=== PATIENT | female | born 2000 | race Caucasian/White ===

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

== ENCOUNTER 2020-01-27 07:46 | Emergency (ER) | payer SELFPAY ==
[2020-01-27 07:47] VITALS: BP 148/80; PULSE 107; RESP 16; TEMP 36.6; O2SAT 100; BMI 18.8
--- NOTE | 2020-01-27 07:55 | ED.VISSUMM ---
- ER Visit Summary Date of Service: 01/27/20 Chief Complaint: [Dental pain] History of Present Illness: The patient is a 19 F [presents with dental pain that started about a week ago. Patient states that she has an erupting right lower molar. Patient complains of pain with chewing. She denies any fever, chills, or sweats. Patient states that she normally sees [facility] but they want $400 to have the tooth extracted and she cannot afford it. Patient denies any trauma to her teeth. Patient has no medical history.] Physical Examination: [HEENT-PERRLA, EOMI. Cranial nerves II through XII grossly intact. TMs clear. Mucous membranes moist. No adenopathy. Dentition-patient does have an erupting right lower wisdom tooth is tender to palpation. There are some mild gingival edema and faint erythema noted. Patient also some tenderness to the adjacent right lower molars. No discrete gingival abscesses noted. No facial erythema or cellulitis. No significant swelling of the face noted. Cardiovascular-regular rate and rhythm without murmur or ectopy Lungs-clear to auscultation, chest wall stable without crepitus or subcu emphysema Abdomen-normoactive bowel sounds, soft, nontender, no rebound or rigidity, no peritoneal signs. Extremities-intact ?4, normal range of motion, normal pulses, atraumatic] Test Results: [None indicated] Emergency Department Course and Treatment: [] Treatment Plan: [Patient will be started on clindamycin and given a prescription for Naprosyn as well as a list of dentists.] Disposition: [Discharged home in stable condition] Impression: [Dental pain] This note was generated with [employer] dictation software. It may contain incorrect words, spelling, and punctuation that were not noted in review of the chart prior to signing ED Disposition - Plan for ED Patient: Referrals: Care Physician,No Primary [Primary Care Provider] -
--- NOTE | 2020-01-27 07:57 | ED.DEP ---
ED Disposition - Plan for ED Patient: Instructions: ED Tooth Pain Prescriptions: Clindamycin HCl [Cleocin] 300 mg PO Q6H #40 cap Prescription Printed Naproxen [Naprosyn] 500 mg PO BID PRN #20 tab Prescription Printed Referrals: Care Physician,No Primary [Primary Care Provider] - Additional Instructions: see a dentist
[2020-01-27] MEDS: Clindamycin HCl 150 MG Capsule 300 MG PO (08:11)
== END 2020-01-27 08:14 | disposition home or self-care (01) ==
LOC: ED 08:10
PROVIDERS: Emergency Provider Emergency Medicine
DX: K08.89 Other specified disorders of teeth and supporting structures (principal); Z72.0 Tobacco use
CPT/HCPCS: 99282

== ENCOUNTER 2020-05-26 20:00 | Emergency (ER) | payer SELFPAY ==
[2020-05-26 20:01] VITALS: BP 145/87; PULSE 99; RESP 16; TEMP 36.7; O2SAT 98; BMI 18.6
--- NOTE | 2020-05-26 20:07 | ED.VIS.GEN ---
History of Present Illness Chief Complaint: Dental Informant: Patient Onset: Days Context: Gradual Onset Timing: Continuous Current Severity: Moderate Maximum Severity: Moderate Narrative: The patient is an otherwise healthy 20-year-old female presents to the emergency department dental abscess. She states she is had pain in her bottom right jaw for a few days. She states today, she noticed some purulent drainage. She denies any trouble speaking or swallowing. She denies any fevers or chills. She knows that she has impacted wisdom teeth, but states the cost of getting the removed was too high. She is not been on antibiotics recently. Prior similar symptoms: Yes Recent Illness/Hospitalization: No Past Medical History - Allergies and Home Meds Allergies/Adverse Reactions: Allergies sumatriptan [From Imitrex] Allergy (Verified 05/26/20 20:04) Other vancomycin Allergy (Verified 05/26/20 20:04) Anaphylaxis Primary Care Physician: Care Physician,No Primary [Primary Care Provider] - Prior records reviewed: Yes Past Medical History: None Surgical History: noncontributory Smoking Status: Current every day smoker Review of Systems General: Denies: Chills, Fever, Sweats Eyes: Denies: Visual changes - bilaterally, Diplopia ENT: Denies: Rhinorrhea, Sore throat Cardiovascular: Denies: Chest pain, Palpitations Respiratory: Denies: Dyspnea, Cough, Dyspnea on exertion Gastrointestinal: Denies: Abdominal pain, Nausea, Vomiting, Diarrhea, Melena, Hematochezia Genitourinary: Denies: Dysuria, Hematuria, Frequency Musculoskeletal: Denies: Back pain, Extremity Pain Skin: Denies: Rash, Wounds Neurological: Denies: Headache, Weakness, Numbness Physical Exam Vital Signs/Narrative: Vital Signs Temp Pulse Resp BP Pulse Ox 05/26/20 20:01 98.1 F 99 16 145/87 H 98 Inital Vital Signs reviewed: Yes General: Well nourished, Well developed, No Acute Distress Head: Normocephalic, Atraumatic Eyes: Perrl, EOMI ENT: Moist mucous membranes, No rhinorrhea, - - Oropharynx widely patent. Submental space soft. Impaction of tooth #32 with erythema of the gumline. Neck: Supple, Nontender Cardiovascular: Regular rate, Regular rhythm, No murmurs Respiratory: No distress, CTA bilaterally, Chest nontender Abdomen: Soft, Nontender, Nondistended, Normal bowel sounds Back: Nontender, Normal Inspection Extremities: Nontender, No edema Skin: Normal color, No rash Neurological: Alert, Oriented x3, Cranial nerves II-XII grossly intact, Normal Strength, Normal Sensation Psychological: Normal affect, Normal Mood Diagnostic/Tx/Re-eval - Medical Decision Making Patient has a dental abscess from impacted wisdom tooth. The submental space is soft. There is no trismus or stridor. I do feel that she is likely going to need these removed, but cost is obviously an issue. There is no evidence of Bhavesh angina. The patient will be started on penicillin. She is given outpatient dental referral. Impression 1. Dental abscess ED Disposition - Plan for ED Patient: Instructions: Dental Abscess Prescriptions: Penicillin V Potassium 500 mg PO 4X/DAY #40 tablet Prescription Printed Referrals: Care Physician,No Primary [Primary Care Provider] -
== END 2020-05-26 20:17 | disposition home or self-care (01) ==
PROVIDERS: Emergency Provider Emergency Medicine
DX: K04.7 Periapical abscess without sinus (principal); F17.200 Nicotine dependence, unspecified, uncomplicated
CPT/HCPCS: 99282

== ENCOUNTER 2021-08-09 14:49 | Emergency (ER) | payer SELFPAY ==
[2021-08-09 14:51] VITALS: BP 136/71; PULSE 106; RESP 18; TEMP 36.4; O2SAT 97; BMI 18.6
--- NOTE | 2021-08-09 15:22 | CT_ITS ---
STUDY: CT BRAIN WITHOUT CONTRAST REASON FOR EXAM: Female, 21 years old. Head injury RADIATION DOSAGE (If Supplied By Facility): CTDIvol = ( 44.99 ) mGy, DLP = ( 762.36 ) mGycm TECHNIQUE: Transaxial CT imaging of the brain was performed without administration of intravenous contrast material. Individualized dose optimization techniques were used for this CT. COMPARISON: No relevant priors. FINDINGS: Normal soft tissue structures. Normal calvarium. Normal size ventricles and extra-axial spaces for the patient''s age. Normal white matter tracts of the cerebral hemispheres. Normal basal ganglia and thalami. Normal brainstem. Normal cerebellum. There is no intracranial hemorrhage. There are no findings of an acute ischemic infarction. Normal visualized paranasal sinuses. CT/Brain/Head without Contrast IMPRESSION: Normal unenhanced CT scan of the brain. Electronically Signed: Saul Baum MD at 15:40 EDT ,
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
== END 2021-08-09 15:59 | disposition home or self-care (01) ==
PROVIDERS: Emergency Provider Emergency Medicine; Visit Provider Emergency Medicine
DX: S06.0X9A Concussion with loss of consciousness of unspecified duration, initial encounter (principal); F17.210 Nicotine dependence, cigarettes, uncomplicated; W22.8XXA Striking against or struck by other objects, initial encounter
CPT/HCPCS: 70450; 99282